=== PATIENT | male | born 1935 | race Caucasian/White ===

== ENCOUNTER 2019-09-03 14:43 | Emergency (ER) | payer OTHER ==
--- OUTSIDE RECORDS SUMMARY | 2019-09-03 14:46 | XMS REPORT | Summary of Care ---
:1935 Author Organization [facility] - Health Address [address] [place] [address] Care Team Providers Name Role Phone Petey Silverman MD Primary Care Provider Encounter Details Date Type Department Care Team Description 02/26/2019 Orders Only [facility] Doctor Unassigned, No [address] [facility] Name [place] [id number] [address] [place] [address] Allergies Active Allergy Reactions Severity Noted Date Comments Ciprofloxacin Unknown - See comments 12/14/2015 Gabapentin Unknown - See comments 12/14/2015 documented as of this encounter (statuses as of 02/26/2019) Medications Medication Sig Dispensed Refills Start Date End Date Status cyclobenzaprine Take 1 Tab by 0 07/19/2015 Active (FLEXERIL) 5 mg tablet mouth 3 (three) times daily. tamsulosin (FLOMAX) 0.4 Take 1 Cap by 0 08/09/2015 Active mg 24 hr capsule mouth daily. atorvastatin 20 mg Take 20 mg by 0 Active tablet mouth at bedtime. docusate 100 mg capsule Take 100 mg by 0 Active mouth 2 (two) times daily. pantoprazole 40 mg EC Take 40 mg by 0 Active tablet mouth. furosemide 20 mg tablet Take 40 mg by 0 Active mouth daily. Changed 08/28/18 from 40 mg to 80 mg bid lisinopril 40 mg tablet TK 1 T PO QD 6 07/15/2017 Active metoprolol tartrate 50 Take 75 mg by 0 09/27/2016 Active mg tablet mouth 2 (two) times daily. predniSONE 5 mg tablet Take 10 mg by 0 Active mouth at bedtime. apixaban 5 mg tablet Take 2.5 mg by 0 Active mouth 2 (two) times daily. vitamin B-6 100 mg Take 100 mg by 0 Active tablet mouth daily. albuterol 90 Inhale 2 Puffs 8.5 g 5 10/10/2017 Active mcg/actuation inhaler every 6 (six) hours as needed for Wheezing or Shortness of Breath. KCL 20 mEq tablet Take by mouth 0 Active daily. traMADOL 50 mg tablet Take 50 mg by 0 Active mouth once daily as needed. ampicillin 500 mg Take 1 capsule 20 capsule 0 11/24/2018 Active capsuleIndications: by mouth every Urinary tract infection 12 (twelve) with hematuria, site hours. unspecified Lactobacillus Acidoph & Take 1 tablet by 60 tablet 0 11/24/2018 Active Bulgar 1 million cell mouth 2 (two) TabIndications: Urinary times daily. tract infection with hematuria, site unspecified traMADOL 50 mg Take 1 tablet by 20 tablet 0 11/24/2018 Active tabletIndications: mouth every 6 Impingement syndrome of (six) hours as left shoulder needed for Pain (scale 4-6). lidocaine 5 % (700 Apply 1 Patch to 30 Patch 0 11/25/2018 Active mg/patch) area(s) daily. patchIndications: Impingement syndrome of left shoulder documented as of this encounter (statuses as of 02/26/2019) Active Problems Problem Noted Date Confusion 11/23/2018 Toxic encephalopathy 11/22/2018 Essential hypertension 08/30/2018 Pacemaker 08/30/2018 Chronic diastolic congestive heart failure 08/30/2018 History of DVT (deep vein thrombosis) 08/30/2018 Coronary artery disease involving [place] coronary artery of [place] heart 08/30 without angina pectoris Mixed hyperlipidemia 08/30/2018 UTI (urinary tract infection) 08/30/2018 Encephalopathy 08/29/2018 Toxic metabolic encephalopathy 08/29/2018 documented as of this encounter (statuses as of 02/26/2019) Social History Tobacco Use Types Packs/Day Years Used Date Former Smoker Smokeless Tobacco: Never Used Alcohol Use Drinks/Week oz/Week Comments No Sex Assigned at Date Recorded Not on file Job Start Date Occupation Industry Not on file Not on file Not on file Travel History Travel Start Travel End No recent travel history available. documented as of this encounter Last Filed Vital Signs Not on filedocumented in this encounter Plan of Treatment Date Type Specialty Care Team Description 02/26/2019 Office Visit Family Medicine Cathi Sandoval, PROSPER [address] [address] Health Maintenance Due Date Last Done Comments DTaP,Tdap,and Td Vaccines (1 - Tdap) 1954 Zoster Recombinant Vaccine (SHINGRIX) (1 of 2) 11/27/1983 Medicare Wellness Visit 1998 PNEUMOCOCCAL VACCINES 65+ (1 of 2 - PCV13) 1998 INFLUENZA VACCINE (#1) 2019 documented as of this encounter Implants Implanted Type Area Payroll Officer Device Identifier Shelf Expiration Model / Serial Date / Lot Pacemaker documented as of this encounter Procedures Procedure Name Priority Date/Time Associated Diagnosis Comments ASSIGNMENT OF BENEFITS Routine 02/26/2019 2:01 PM CDT documented in this encounter Results Not on filedocumented in this encounter Insurance Payer Benefit Plan / Subscriber ID Effective Dates Phone Address Type Group MEDICARE MEDICARE PART xxxxxxxxxxx 1998-Jerry [phone] [address] Medicare A & B t 2 [id number] [place] [address] [facility] [id number] 06/10/2013-Jerry fry documented as of this encounter Advance Directives Name Relationship Healthcare Agent Communication Relationship Virginia Loyn Child Primary healthcare agent
--- OUTSIDE RECORDS SUMMARY | 2019-09-03 14:46 | XMS REPORT | Summary of Care ---
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 [place] [address] [id number] [place] [address] Allergies Active Allergy Reactions Severity Noted Date [...] vein thrombosis) 08/30/2018 Coronary artery disease involving [place] coronary artery of [place] heart 08/30 without angina pectoris Mixed hyperlipidemia [...] of this encounter Last Filed Vital Signs Vital Sign Reading Time Taken Comments Blood Pressure 150/73 02/26/2019 2:15 PM CDT Pulse 62 02/26/2019 2:15 PM CDT Temperature - - Respiratory Rate - - Oxygen Saturation - - Inhaled Oxygen Concentration - - Weight 96.6 kg (213 lb) 02/26/2019 2:15 PM CDT Height 182.9 cm (6') 02/26/2019 2:15 PM CDT Body Mass Index 28.89 02/26/2019 2:15 PM CDT documented in this encounter Progress Notes Cathi Sandoval, PROSPER - 02/26/2019 2:20 PM CDT Cc: Chief Complaint Patient presents with Follow-up F- up on Blood Pressure LAB WORK Gregg Gómez is a 83 year old male. Subjective: Gregg Gómez is a 83 year old male with hypertension. Current Outpatient Medications: ampicillin 500 mg capsule, Take 1 capsule by mouth every 12 (twelve) hours., Disp: 20 capsule, Rfl: 0 Lactobacillus Acidoph & Bulgar 1 million cell Tab, Take 1 tablet by mouth 2 (two) times daily., Disp: 60 tablet, Rfl: 0 lidocaine 5 % (700 mg/patch) patch, Apply 1 Patch to area(s) daily., Disp: 30 Patch, Rfl: 0 traMADOL 50 mg tablet, Take 1 tablet by mouth every 6 (six) hours as needed for Pain (scale 4-6)., Disp: 20 tablet, Rfl: 0 KCL 20 mEq tablet, Take by mouth daily., Disp: , Rfl: traMADOL 50 mg tablet, Take 50 mg by mouth once daily as needed., Disp: , Rfl: albuterol 90 mcg/actuation inhaler, Inhale 2 Puffs every 6 (six) hours as needed for Wheezing or Shortness of Breath., Disp: 8.5 g, Rfl: 5 apixaban 5 mg tablet, Take 2.5 mg by mouth 2 (two) times daily., Disp: , Rfl: atorvastatin 20 mg tablet, Take 20 mg by mouth at bedtime., Disp: , Rfl: docusate 100 mg capsule, Take 100 mg by mouth 2 (two) times daily., Disp: , Rfl: furosemide 20 mg tablet, Take 40 mg by mouth daily. Changed 08/28/18 from 40 mg to 80 mg bid, Disp: ,Rfl: lisinopril 40 mg tablet, TK 1 T PO QD, Disp: , Rfl: 6 metoprolol tartrate 50 mg tablet, Take 75 mg by mouth 2 (two) times daily., Disp : , Rfl: pantoprazole 40 mg EC tablet, Take 40 mg by mouth., Disp: , Rfl: predniSONE 5 mg tablet, Take 10 mg by mouth at bedtime., Disp: , Rfl: vitamin B-6 100 mg tablet, Take 100 mg by mouth daily., Disp: , Rfl: cyclobenzaprine (FLEXERIL) 5 mg tablet, Take 1 Tab by mouth 3 (three) times daily., Disp: , Rfl: 0 tamsulosin (FLOMAX) 0.4 mg 24 hr capsule, Take 1 Cap by mouth daily., Disp: , Rfl: No current facility-administered medications for this visit. Hypertension ROS: taking medications as instructed, no medication side effects noted, no TIA's, no chest pain on exertion, no dyspnea on exertion, no swelling of ankles, no palpitations, no erectile dysfunction. New concerns: None Objective: BP (!) 150/73 (BP Location: Left arm, Patient Position: Sitting, BP CUFF SIZE: Adult Large) | Pulse62 | Ht 6' (1.829 m) | Wt 213 lb (96.6 kg) | BMI 28.89 kg/m Appearance healthy, alert and cooperative. General exam BP noted to be mildly elevated today in office, S1, S2 normal, no gallop, no murmur, chest clear, no JVD, no HSM, no edema, CVS exam - S1, S2 normal, no murmur, click, rub or gallop, regular rate and rhythm, brisk carotid upstroke without bruits, peripheral pulses very brisk, chest is clear without rales or wheezing, no pedal edema, no JVD, no hepatosplenomegaly. Lab review: labs are reviewed, up to date and normal, orders written for new lab studies as appropriate; see orders. Allergies Gregg is allergic to ciprofloxacin and gabapentin. Medications Outpatient Medications Prior to Visit Medication Sig Dispense Refill ampicillin 500 mg capsule Take 1 capsule by mouth every 12 (twelve) hours. 20 capsule 0 Lactobacillus Acidoph & Bulgar 1 million cell Tab Take 1 tablet by mouth 2 (two) times daily. 60 tablet 0 lidocaine 5 % (700 mg/patch) patch Apply 1 Patch to area(s) daily. 30 Patch 0 traMADOL 50 mg tablet Take 1 tablet by mouth every 6 (six) hours as needed for Pain (scale 4-6).20 tablet 0 KCL 20 mEq tablet Take by mouth daily. traMADOL 50 mg tablet Take 50 mg by mouth once daily as needed. albuterol 90 mcg/actuation inhaler Inhale 2 Puffs every 6 (six) hours as needed for Wheezing or Shortness of Breath. 8.5 g 5 apixaban 5 mg tablet Take 2.5 mg by mouth 2 (two) times daily. atorvastatin 20 mg tablet Take 20 mg by mouth at bedtime. docusate 100 mg capsule Take 100 mg by mouth 2 (two) times daily. furosemide 20 mg tablet Take 40 mg by mouth daily. Changed 08/28/18 from 40 mg to 80 mg bid lisinopril 40 mg tablet TK 1 T PO QD 6 metoprolol tartrate 50 mg tablet Take 75 mg by mouth 2 (two) times daily. pantoprazole 40 mg EC tablet Take 40 mg by mouth. predniSONE 5 mg tablet Take 10 mg by mouth at bedtime. vitamin B-6 100 mg tablet Take 100 mg by mouth daily. cyclobenzaprine (FLEXERIL) 5 mg tablet Take 1 Tab by mouth 3 (three) times daily. 0 tamsulosin (FLOMAX) 0.4 mg 24 hr capsule Take 1 Cap by mouth daily. No facility-administered medications prior to visit. Histories Past Medical History: Diagnosis Date CAD (coronary artery disease) CKD (chronic kidney disease) stage 3, GFR 30-59 ml/min Colon cancer s/p partial colectomy in 90s Enlarged prostate GCA (giant cell arteritis) Hypertension Kidney stone SSS (sick sinus syndrome) s/p ppm Vertigo Past Surgical History: Procedure Laterality Date BACK SURGERY CHOLECYSTECTOMY COLECTOMY OTHER neck surgery PACEMAKERS INSERTION Social History Socioeconomic History Marital status: Spouse name: Not on file Number of children: Not on file Years of education: Not on file Highest education level: Not on file Occupational History Not on file Social Needs Financial resource strain: Not on file Food insecurity: Worry: Not on file Inability: Not on file Transportation needs: Medical: Not on file Non-medical: Not on file Tobacco Use Smoking status: Former Smoker Smokeless tobacco: Never Used Substance and Sexual Activity Alcohol use: No Drug use: No Sexual activity: Not on file Lifestyle Physical activity: Days per week: Not on file Minutes per session: Not on file Stress: Not on file Relationships Social connections: Talks on phone: Not on file Gets together: Not on file Attends yazdanism service: Not on file Active member of club or organization: Not on file Attends meetings of clubs or organizations: Not on file Relationship status: Not on file Intimate partner violence: Fear of current or ex partner: Not on file Emotionally abused: Not on file Physically abused: Not on file Forced sexual activity: Not on file Other Topics Concern Not on file Social History Narrative 08/29/18 - lives with daughter Family History Problem Relation Age of Onset Coronary Heart Disease Father Review of Systems Constitutional: Negative. Negative for chills, fatigue and fever. Respiratory: Negative. Negative for cough, chest tightness, shortness of breath and wheezing. Cardiovascular: Negative. Negative for chest pain and palpitations. Gastrointestinal: Negative. Neurological: Negative. Negative for syncope, weakness, light-headedness and headaches. Psychiatric/Behavioral: Negative. Endocrine: Endocrine negative Vital Signs BP (!) 150/73 (BP Location: Left arm, Patient Position: Sitting, BP CUFF SIZE: Adult Large) | Pulse62 | Ht 6' (1.829 m) | Wt 213 lb (96.6 kg) | BMI 28.89 kg/m Physical Exam Constitutional: He is oriented to person, place, and time. He appears well- developed. No distress. Cardiovascular: Normal rate, regular rhythm, normal heart sounds and intact distal pulses. Exam reveals no gallop and no friction rub. No murmur heard. Pulmonary/Chest: Effort normal and breath sounds normal. No stridor. No respiratory distress. He hasno wheezes. He has no rales. He exhibits no tenderness. Abdominal: Soft. Bowel sounds are normal. Neurological: He is alert and oriented to person, place, and time. Skin: Skin is warm and dry. Capillary refill takes less than 2 seconds. Psychiatric: He has a normal mood and affect. Nursing note and vitals reviewed. Assessment/Plan 1. Assessment: Hypertension, stable, no significant medication side effects noted. A1C added to lab due to noted elevated blood glucose last lab panel done. Monitor blood pressures at home routinely, first thing in the morning and last thing before bed, record the readings. If consistently >130/80, please RTC for medication management. If with acute chestpain, jaw pain, numbness and tingling radiating to arm, with or without respiratory distress, please go to the ER. Plan: current treatment plan is effective, no change in therapy. Plan of care, desired health behaviors, goals, and medication discussed with patient. Education resources provided and reviewed with AVS. Patient/guardian/family verbalized understanding & agrees to plan of care. This visit did not involve counseling and coordination that comprised more than 50% of the visit time. If applicable, the [place] [employer] database was accessed to review any controlled substance prescription claims data. The [facility] prescription claims data in [employer] was reviewed to assess patient compliance with the medication treatment plan. aneth Recio - 02/26/2019 2:20 PM CDTVenipuncture Collection performed by clean technique. Total of 1 attempts were made. Slight pressureand a bandage/ dressing were applied to the site(s). The patient experienced no complications. Specimens were sent processed to [facility] laboratories. documented in this encounter Plan of Treatment Name Type Priority Associated Diagnoses Order Schedule LIPID PANEL (85458)(TOTAL LAB Routine Essential hypertension Ordered: 02/26 CHOLESTEROL, TRIGLYCERIDES, HDL) COMP. METABOLIC PANEL LAB Routine Essential hypertension Ordered: 2018 ([id number]) GLYCOSYLATED HEMOGLOBIN LAB Routine Blood glucose elevated Ordered: 2018 (A1C) THYROID STIMULATING HORMONE LAB Routine Essential hypertension Ordered: CBC WITH DIFF LAB Routine Essential hypertension Ordered: 02/26/2019 CBC WITH DIFFERENTIAL LAB Routine Essential hypertension Ordered: 2018 Health Maintenance Due Date Last Done Comments DTaP,Tdap,and Td Vaccines (1 - Tdap) 1954 Zoster Recombinant Vaccine (SHINGRIX) (1 of 2) 11/27/1983 Medicare Wellness Visit 1998 PNEUMOCOCCAL VACCINES 65+ (1 of 2 - PCV13) 1998 INFLUENZA VACCINE (#1) 2019 documented as of this encounter Implants Implanted Type Area Rn Appeals Device Identifier Shelf Expiration Model / Serial Date / Lot Pacemaker documented as of this encounter Results Not on filedocumented in this encounter Visit Diagnoses Diagnosis Essential hypertension - Primary Unspecified essential hypertension Blood glucose elevated Other abnormal glucose documented in this encounter Insurance Payer Benefit Plan / Subscriber ID Effective Dates Phone Address Type Group MEDICARE MEDICARE PART xxxxxxxxxxx 1998-Jerry [phone] Medicare A & B t 2 [id number] [place] [id number] [facility] [id number] 2013-Jerry fry documented as of this encounter Advance Directives Name Relationship Healthcare Agent Communication Relationship Virginia Lyon Child Primary healthcare agent "
--- OUTSIDE RECORDS SUMMARY | 2019-09-03 14:46 | XMS REPORT | Summary of Care ---
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 [place] [address] [address] [id number] [place] [address] Allergies Active Allergy Reactions Severity [...] vein thrombosis) 08/30/2018 Coronary artery disease involving [place] coronary artery of [place] heart 08/30 without angina pectoris Mixed hyperlipidemia [...] file Gets together: Not on file Attends sikh service: Not on file Active member of [...] the visit time. If applicable, the [place] [employer] database was accessed to review any controlled substance prescription claims data. The [employer] prescription claims data in [employer] was reviewed to assess patient compliance with the medication treatment plan. aneth Recio - 02/26/2019 2:20 PM CDTVenipuncture Collection performed by clean technique. Total of 1 attempts were made. Slight pressureand a bandage/ dressing were applied to the site(s). The patient experienced no complications. Specimens were sent processed to [facility] laboratories. documented in this encounter Plan of Treatment Name Type Priority Associated Diagnoses Order Schedule LIPID PANEL ([id number])(TOTAL LAB Routine Essential hypertension Ordered: 02/26 CHOLESTEROL, TRIGLYCERIDES, HDL) COMP. METABOLIC PANEL LAB Routine Essential hypertension Ordered: 2018 ([id number]) GLYCOSYLATED HEMOGLOBIN LAB Routine Blood glucose elevated [...] of this encounter Implants Implanted Type Area Vending Stand Supervisor Device Identifier Shelf Expiration Model / Serial [...] BOX Medicare A & B t 2 [id number] [place] [id number] [facility] [id number] 2013-Jerry fry documented as of this encounter Advance Directives Name Relationship Healthcare Agent Communication Relationship Virginia yLon Child Primary healthcare agent "
--- OUTSIDE RECORDS SUMMARY | 2019-09-03 14:46 | XMS REPORT ---
:1935 Author Organization [facility] Address [address] [place] [address] [address] [place] [address] Care Team Providers Name Role Phone Unavailable Unavailable Unavailable Problems This patient has no known problems. Allergies, Adverse Reactions, Alerts This patient has no known allergies or adverse reactions. Medications This patient has no known medications.
--- OUTSIDE RECORDS SUMMARY | 2019-09-03 14:47 | XMS REPORT | Summary of Care ---
:1935 Author Organization [facility] - Health Address [address] [place] [address] Care Team Providers Name Role Phone Petey Silverman MD Primary Care Provider Quique Chavez DO Clothes Designer Encounter Details Date Type Department Care Team Description 07/22/2019 Orders Only [facility] Doctor Unassigned, No [address] [place] [address] [address] [place] [address] Allergies Active Allergy Reactions Severity Noted Date Comments Ciprofloxacin Unknown - See comments 12/14/2015 Gabapentin Unknown - See comments 12/14/2015 documented as of this encounter (statuses as of 07/22/2019) Medications Medication Sig Dispensed Refills Start Date [...] 1 T PO QD 6 07/15/2017 Active predniSONE 5 mg tablet Take 10 mg [...] tablet Take by mouth 0 Active daily. Lactobacillus Acidoph & Take 1 tablet by [...] as of this encounter (statuses as of 07/22/2019) Active Problems Problem Noted Date HAILEY (acute kidney injury) 05/13/2019 Complicated UTI (urinary tract infection) 05/12/2019 Confusion 11/23/2018 Toxic encephalopathy 11/22/2018 Essential hypertension 08/30/2018 Pacemaker 08/30/2018 Chronic diastolic congestive heart failure 08/30/2018 History of DVT (deep vein thrombosis) 08/30/2018 Coronary artery disease involving [place] coronary artery of [place] heart 08/30 without angina pectoris Mixed hyperlipidemia 08/30/2018 UTI (urinary tract infection) 08/30/2018 Encephalopathy 08/29/2018 Toxic metabolic encephalopathy 08/29/2018 documented as of this encounter (statuses as of 07/22/2019) Immunizations Name Administration Dates Next Due Influenza High Dose 05/14/2019 Pneumococcal Polysaccharide, PPSV23 (PNEUMOVAX) 05/14/2019 documented as of this encounter Social History Tobacco Use Types Packs/Day Years [...] filedocumented in this encounter Plan of Treatment Health Maintenance Due Date Last Done Comments EYE EXAM 11/27/1945 URINE MICROALBUMIN 11/27/1943 DTaP,Tdap,and Td Vaccines (1 - 1944 Tdap) FOOT EXAM 11/27/1951 Zoster Recombinant Vaccine 11/27/1983 (SHINGRIX) (1 of 2) Medicare Wellness Visit 1998 HgA1C 08/27/2019 02/26/2019, 08/29/2018 LDL-C 02/27/2020 02/26/2019, 02/16/2015, 12/09/2014 CREATININE (SERUM) 05/14/2020 05/14/2019, 05/13/2019, 05/12/2019, Additional history exists PNEUMOCOCCAL VACCINES 65+ (2 of 2 05/14/2020 05/14/2019 - PCV13) INFLUENZA VACCINE Completed 05/14/2019 documented as of this encounter Implants Implanted Type Area Electrical Designer Device Identifier Shelf Expiration Model / Serial Date / Lot Pacemaker documented as of this encounter Procedures Procedure Name Priority Date/Time Associated Diagnosis Comments EXTERNAL PROVIDER Routine 07/22/2019 12:01 AM SCHEDULING ADMINISTRATOR RECORDS documented in this encounter Results Not on filedocumented in this encounter Insurance Payer Benefit Plan / Subscriber ID Effective Dates Phone Address Type Group MEDICARE MEDICARE PART xxxxxxxxxxx 1998-[place] [phone] [address] Medicare A & B t 2 [id number] [place] [phone] [facility] [id number] 2013-Presjose Indemnity t documented as of this encounter Advance Directives Name Relationship Healthcare Agent Communication Relationship Virginia Lyon Child Primary healthcare agent
--- NOTE | 2019-09-03 15:38 | EDPHYS ---
Physician Documentation [facility] Name: Gregg Gómez Age: 83 yrs Sex: Male : 1935 Arrival Date: 09/03/2019 Time: 14:44 Bed 8 Private MD: ED Physician Junito Phelps HPI: 09/02 15:34 This 83 yrs old Male presents to ER via Unassigned with complaints of jr8 COVID-19 Exposure. 15:34 Patient stated that his daughter who he has been with tested positive for COVID-19. jr8 Stated that she came to ED today for worsening of symptoms. Day 6 post testing per him. Stated that he wants to make sure he is not positive as well. Has not been tested thus far. Denies any symptoms at this time . The patient has not experienced similar symptoms in the past. The patient has not recently seen a physician. Historical: - Allergies: 15:47 codeine; em - Home Meds: 15:47 lisinopril 10 mg Oral tab 1 tab once daily [Active]; prednisone 10 mg Oral tab once em daily [Active]; Cyclobenzaprine Oral [Active]; metoprolol tartrate 50 mg Oral tab [Active]; tramadol 50 mg Oral tab [Active]; memantine 5 mg oral tab [Active]; carbidopa-levodopa 25-100 mg Oral tab [Active]; Eliquis 2.5 mg oral tab [Active]; pantoprazole 40 mg oral TbEC [Active]; - PMHx: 15:47 Parkinsons; Hypertension; em - PSHx: 15:47 right hand; em - Immunization history:: Adult Immunizations up to date. - Social history:: Smoking status: Patient denies any tobacco usage or history of. ROS: 15:34 Eyes: Negative for injury, pain, redness, and discharge, ENT: Negative for injury, jr8 pain, and discharge, Neck: Negative for injury, pain, and swelling, Cardiovascular: Negative for chest pain, palpitations, and edema, Respiratory: Negative for shortness of breath, cough, wheezing, and pleuritic chest pain, Abdomen/GI: Negative for abdominal pain, nausea, vomiting, diarrhea, and constipation, Back: Negative for injury and pain, MS/Extremity: Negative for injury and deformity, Skin: Negative for injury, rash, and discoloration, Neuro: Negative for headache, weakness, numbness, tingling, and seizure. Exam: 15:34 Eyes: Pupils equal round and reactive to light, extra-ocular motions intact. Lids and jr8 lashes normal. Conjunctiva and sclera are non-icteric and not injected. Cornea within normal limits. Periorbital areas with no swelling, redness, or edema. ENT: Nares patent. No nasal discharge, no septal abnormalities noted. Tympanic membranes are normal and external auditory canals are clear. Oropharynx with no redness, swelling, or masses, exudates, or evidence of obstruction, uvula midline. Mucous membranes moist. Neck: Trachea midline, no thyromegaly or masses palpated, and no cervical lymphadenopathy. Supple, full range of motion without nuchal rigidity, or vertebral point tenderness. No Meningismus. Cardiovascular: Regular rate and rhythm with a normal S1 and S2. No gallops, murmurs, or rubs. Normal PMI, no JVD. No pulse deficits. Respiratory: Lungs have equal breath sounds bilaterally, clear to auscultation and percussion. No rales, rhonchi or wheezes noted. No increased work of breathing, no retractions or nasal flaring. Abdomen/GI: Soft, non-tender, with normal bowel sounds. No distension or tympany. No guarding or rebound. No evidence of tenderness throughout. Back: No spinal tenderness. No costovertebral tenderness. Full range of motion. Skin: Warm, dry with normal turgor. Normal color with no rashes, no lesions, and no evidence of cellulitis. MS/ Extremity: Pulses equal, no cyanosis. Neurovascular intact. Full, normal range of motion. Neuro: Awake and alert, GCS 15, oriented to person, place, time, and situation. Cranial nerves II-XII grossly intact. Motor strength 5/5 in all extremities. Sensory grossly intact. Cerebellar exam normal. Normal gait. Vital Signs: 15:20 BP 125 / 66; Pulse 97; Resp 18; Temp 98.6(O); Pulse Ox 100% on R/A; Weight 90.72 kg; em Height 6 ft. 0 in. (182.88 cm); Pain 0/10; 16:31 BP 147 / 73; Pulse 95; Resp 17; Temp 98.7; Pulse Ox 94% ; bp 18:00 BP 153 / 69; Pulse 89; Resp 16; Temp 98.7; Pulse Ox 95% ; bp 15:20 Body Mass Index 27.12 (90.72 kg, 182.88 cm) em MDM: 15:00 Patient medically screened. jr8 15:34 Data reviewed: vital signs, nurses notes, lab test result(s). Data interpreted: Pulse jr8 oximetry: on room air is 98 %. Interpretation: normal. Counseling: I had a detailed discussion with the patient and/or guardian regarding: the historical points, exam findings, and any diagnostic results supporting the discharge/admit diagnosis, lab results, the need for outpatient follow up, a family practitioner, to return to the emergency department if symptoms worsen or persist or if there are any questions or concerns that arise at home. ED course: Discussed with patient to remain in isolation for next 8 days +... Will send COVID testing. 09/02 15:13 Order name: [facility] [place]. Lab Test [facility] 09/02 16:30 Order name: Urine Microscopic Only; Complete Time: 18:00 bp 09/02 16:30 Order name: Urine Dipstick-Ancillary (obtain specimen); Complete Time: 16:30 bp 09/02 16:30 Order name: Urine Culture bp 09/02 16:33 Order name: Urine Dipstick--Ancillary (enter results); Complete Time: 17:24 eb Administered Medications: No medications were administered Disposition: 09/03 07:08 Co-signature as Attending Physician, Junito Phelps MD I agree with the assessment and kdr plan of care. Disposition: 09/03/19 15:37 Discharged to Home. Impression: [facility] for Infectious Testing . - Condition is Stable. - Prescriptions for Augmentin 875- 125 mg Oral Tablet - take 1 tablet by ORAL route every 12 hours for 10 days; 20 tablet. - Medication Reconciliation Form, Thank You Letter, Antibiotic Education, Prescription Opioid Use form. - Follow up: Private Physician; When: As needed; Reason: Recheck today's complaints, Continuance of care, Re-evaluation by your physician. - Problem is new. - Symptoms are unchanged. Signatures: Dispatcher [employer] EDCO Junito Phelps MD MD [facility] Alexander Hill, RN RN em Wilian Miller PA PA jr8 Billy, Trace, RN RN bp Corrections: (The following items were deleted from the chart) 09/02 18:21 15:37 09/03/2019 15:37 Discharged to Home. Impression: [facility] for Infectious Testing bp . Condition is Stable. Forms are Medication Reconciliation Form, Thank You Letter, Antibiotic Education, Prescription Opioid Use. Follow up: Private Physician; When: As needed; Reason: Recheck today's complaints, Continuance of care, Re-evaluation by your physician. Problem is new. Symptoms are unchanged. jr8
[2019-09-03 16:53] LABS: Urine Blood 3+ (NEG); Urine Glucose NEGATIVE (NEG); Urine Protein 2+ (NEG)
[2019-09-03 17:49] LABS: Urine Bacteria 20-50 /HPF (NONE SEEN); Urine RBC >50 /HPF (NONE SEEN)
[2019-09-03 17:50] LABS: Urine Culture Reflex Order NOT NEEDED; Urine Mucus 1+ /HPF (NONE SEEN)
--- NOTE | 2019-09-03 18:23 | ER ---
Nurse's Notes [facility] Name: Gregg Gómez Age: 83 yrs Sex: Male : 1935 Arrival Date: 09/03/2019 Time: 14:44 Bed 8 Private MD: Diagnosis: [facility] for Infectious Testing Presentation: 09/02 15:20 Chief complaint: Patient states: daughter tested positive for covid-19, pt is em asymptomatic, denies cough, fever shortness of breath, denies UTI or burning with urination. 15:20 Method Of Arrival: Wheelchair em 15:20 Coronavirus screen: Patient denies fever greater than 100.4F, cough, shortness of em breath, or difficulty breathing. Proceed with normal triage process. Infection Prevention Nurse has been notified of patient in isolation for probable COVID-19. [facility] Department has been notified of probable COVID-19 case. Ebola Screen: Patient negative for fever greater than or equal to 101.5 degrees Fahrenheit, and additional compatible Ebola Virus Disease symptoms Patient denies exposure to infectious person. Patient denies travel to an Ebola-affected area in the 21 days before illness onset. No symptoms or risks identified at this time. Initial Sepsis Screen: Does the patient meet any 2 criteria? No. Patient's initial sepsis screen is negative. Does the patient have a suspected source of infection? No. Patient's initial sepsis screen is negative. Risk Assessment: Do you want to hurt yourself or someone else? Patient reports no desire to harm self or others. 15:20 Acuity: ALTAGRACIA 3 em Triage Assessment: 15:20 General: Appears in no apparent distress. comfortable, Behavior is calm, cooperative, bp appropriate for age. Pain: Denies pain. EENT: No deficits noted. Neuro: Level of Consciousness is awake, alert, obeys commands, Oriented to person, place, time, situation, Appropriate for age. Cardiovascular: No deficits noted. Respiratory: No deficits noted. GI: No signs and/or symptoms were reported involving the gastrointestinal system. : No signs and/or symptoms were reported regarding the genitourinary system. Derm: No deficits noted. Musculoskeletal: No deficits noted. Historical: - Allergies: 15:47 codeine; em - Home Meds: 15:47 lisinopril 10 mg Oral tab 1 tab once daily [Active]; prednisone 10 mg Oral tab once em daily [Active]; Cyclobenzaprine Oral [Active]; metoprolol tartrate 50 mg Oral tab [Active]; tramadol 50 mg Oral tab [Active]; memantine 5 mg oral tab [Active]; carbidopa-levodopa 25-100 mg Oral tab [Active]; Eliquis 2.5 mg oral tab [Active]; pantoprazole 40 mg oral TbEC [Active]; - PMHx: 15:47 Parkinsons; Hypertension; em - PSHx: 15:47 right hand; em - Immunization history:: Adult Immunizations up to date. - Social history:: Smoking status: Patient denies any tobacco usage or history of. Screenin:20 Abuse screen: Denies threats or abuse. Nutritional screening: No deficits noted. em Tuberculosis screening: No symptoms or risk factors identified. Fall Risk None identified. Assessment: 15:20 General: Appears in no apparent distress. comfortable, Behavior is calm, cooperative, em appropriate for age, Denies fever. Pain: Denies pain. Neuro: Level of Consciousness is awake, alert, obeys commands, Oriented to person, place, time, situation, Appropriate for age Denies weakness headache. Cardiovascular: Denies chest pain, shortness of breath, Capillary refill < 3 seconds Patient's skin is warm and dry. Respiratory: Airway is patent Respiratory effort is even, unlabored, Respiratory pattern is regular, symmetrical, Breath sounds are clear bilaterally. Denies cough, shortness of breath. : Denies burning with urination, urinary frequency. Derm: Skin is intact, is healthy with good turgor, Skin is pink, warm \T\ dry. Musculoskeletal: Capillary refill < 3 seconds, Range of motion: intact in all extremities. 16:06 Reassessment: Spoke with Sada from [facility] who spoke with her dealer analyst, iw recommendation is to not test patient at this time, pt is currently asymptomatic and may test negative, could possibly become symptomatic in the future and then beena need testing at that time. Pt is to remain quarantined at home, do not leave home for 14 days. 16:29 Reassessment: PER FAMILY, D/C ON HOLD FOR UTI WORKUP. PT DENIES DYSURIA OR OTHER bp URINARY S/S. 16:29 General: Pt's daughter reports that pt has been disoriented and lethargic. States these lm7 are typical sxs of uti for pt. Requesting UA. PA notified and verbal order for UA ordered. Pt denies burning, frequency with urination. Pt amb to bathroom with JEAN Woodward. Daughter updated . 18:20 Reassessment: PT D/C HOME AMBULATORY, DX WITH UTI. bp Vital Signs: 15:20 BP 125 / 66; Pulse 97; Resp 18; Temp 98.6(O); Pulse Ox 100% on R/A; Weight 90.72 kg; em Height 6 ft. 0 in. (182.88 cm); Pain 0/10; 16:31 BP 147 / 73; Pulse 95; Resp 17; Temp 98.7; Pulse Ox 94% ; bp 18:00 BP 153 / 69; Pulse 89; Resp 16; Temp 98.7; Pulse Ox 95% ; bp 15:20 Body Mass Index 27.12 (90.72 kg, 182.88 cm) em ED Course: 14:44 Patient arrived in ED. ag5 14:55 Alexander Hill, JEAN is Primary Nurse. em 14:58 Patrick Swan PA is PHCP. cp 14:58 Junito Phelps MD is Attending Physician. cp 15:00 PHCP role handed off by Patrick Swan PA jr8 15:00 Wilian Miller PA is PHCP. jr8 15:20 Patient has correct armband on for positive identification. Bed in low position. Call em light in reach. Side rails up X2. Pulse ox on. NIBP on. 15:28 covid-19 swab sent. em 15:43 Triage completed. em 15:47 Arm band placed on. em 15:50 No provider procedures requiring assistance completed. Patient did not have IV access em during this emergency room visit. 17:57 notified [facility] to send COVID to [facility]. eb Administered Medications: No medications were administered Outcome: 15:37 Discharge ordered by . jrEthan 18:21 Discharged to home ambulatory, with family. bp 18:21 Condition: stable 18:21 Discharge instructions given to patient, Instructed on discharge instructions, follow up and referral plans. medication usage, Demonstrated understanding of instructions, follow-up care, medications, Prescriptions given X 1. 18:21 Patient left the ED. bp Addendum: 09/10/2019 09:56 Addendum: Other Pt notified of positive COVID-19 swab results. Advised to stay in d m5 quarantine and to continue to monitor symptoms. Pt wants me to call daughter. Signatures: Brie Borjas, RN RN dm5 Alexander Hill RN RN em Williams, Irene, RN RN iw Minter, Laura 7 Wilian Miller PA PA jr8 Patrick Swan PA PA cp Peltier, Brian, RN RN bp Botello, Elizabeth eb Gaskin, Ajare 5
[2019-09-03 19:01] VITALS: TEMP 98.7
[2019-09-03 19:04] VITALS: BP 153/69; O2SAT 95
== END 2019-09-03 18:21 | disposition home or self-care (01) ==
LOC: ER 14:43
DX: B97.29 Other coronavirus as the cause of diseases classified elsewhere (principal)
CPT/HCPCS: 87088; 99283; U0002; 81003; 81015; 87086